=== PATIENT | female | born 1950 | race Caucasian/White ===

== ENCOUNTER → 2018-03-11 | Outpatient (CLI) | payer MEDICARE ==
[~2018-03-11] VITALS: Ht 167.6 cm; Wt 69.1 kg
[~2018-03-11] MED LIST: ATOR40TA78 PO; CARV-39 PO; ESTR0.5T PO; LEVO25TA4 PO; LISI5TAB7 PO; SPIR25TA5 PO
[2018-03-11 16:06] LABS: ALANINE AMINOTRANSFERASE 36 U/L (12-78); ALBUMIN 3.8 g/dL (3.4-5.0); ANION GAP 6 mmol/L (5-15); CALCIUM 9.3 mg/dL (8.5-10.1); CHLORIDE 104 mmol/L (98-107); CREATININE 1.01 mg/dL (0.55-1.02)
[2018-03-11 16:07] LABS: BASOPHILS # (AUTO) 0.01 x10^3/uL (0-0.1); BASOPHILS % (AUTO) 0 % (0-1); EOSINOPHILS # (AUTO) 0.15 x10^3/uL (0-0.4); EOSINOPHILS % (AUTO) 2 % (1-7); LYMPHOCYTES # (AUTO) 1.64 x10^3/uL (1-3.4); LYMPHOCYTES % (AUTO) 23 % (22-44); MD NO; MEAN CORPUSCULAR HEMOGLOBIN 30.6 pg (27.0-34.8); MEAN CORPUSCULAR HGB CONC 33.7 g/dL (32.4-35.8); MEAN CORPUSCULAR VOLUME 90.8 fL (80-100); MEAN PLATELET VOLUME 8.6 fL (7.4-10.4); MONOCYTES # (AUTO) 0.49 x10^3/uL (0.2-0.8); MONOCYTES % (AUTO) 7 % (2-9); NEUTROPHILS # (AUTO) 4.85 x10^3/uL (1.8-6.8); NEUTROPHILS % (AUTO) 68 % (42-75); PLATELET COUNT 219 x10^3/uL (130-400); RED BLOOD COUNT 4.59 x10^6/uL (3.82-5.3); RED CELL DISTRIBUTION WIDTH 12.9 % (9.6-15.2)
[2018-03-11 16:08] LABS: ALKALINE PHOSPHATASE 83 U/L (45-117); BILIRUBIN,TOTAL 0.5 mg/dL (0.2-1.0); TOTAL PROTEIN 7.5 g/dL (6.4-8.2)
[2018-03-11 16:20] LABS: BILIRUBIN, DIRECT 0.1 mg/dL (0.1-0.2)
[2018-03-11 16:22] LABS: BILIRUBIN,INDIRECT 0.4 mg/dL (0.0-2.0); BILIRUBIN,TOTAL 0.5 mg/dL (0.2-1.0)
[2018-03-11 17:10] LABS: INTERNATIONAL NORMALIZED RATIO 0.97 (0.93-1.1)
== END | disposition home or self-care (01) ==
LOC: STAR 14:36
PROVIDERS: ATTEND Internal Medicine Cardiovascular Disease
DX: Z01.810 Encounter for preprocedural cardiovascular examination (principal); Z88.6 Allergy status to analgesic agent
CPT/HCPCS: 36415; 71046; 80053; 82247; 82248; 85025; 85610; 85730

== ENCOUNTER → 2018-05-03 | Outpatient (CLI) | payer MEDICARE ==
[~2018-05-03] MED LIST changes: +APIX5TAB PO; +ASPI-496 PO; +B12 PO; +CARV12.52 PO; +CARV12.543 PO; +CHOL10003 PO; +CYAN1TAB29 PO; +DABI150C PO; +DIPH25CA61 PO; +LISI-167 PO; +LORA-702 PO; +MAGN125C PO; +MAGN400T36 PO; +MULT-6 PO; +MULT-658 PO; +OMEG1CAP6 PO; +OMNIPAQUE 350 MG/ML, 150 ML BOTTLE ONE; +QUINOL PO; +SOTA80TA PO; +SOTA80TA18 PO; +Tumeric PO
== END | disposition home or self-care (01) ==
LOC: CFH 10:32
PROVIDERS: ATTEND Internal Medicine Cardiovascular Disease
DX: I48.91 Unspecified atrial fibrillation (principal)
CPT/HCPCS: 71046; 75572; Q9967

== ENCOUNTER 2018-05-04 07:51 | Observation (INO) | payer MEDICARE ==
[2018-05-03 12:36] VITALS: BP 157/90
[~2018-05-04] VITALS: Ht 167.6 cm; Wt 82.9 kg
[~2018-05-04 07:51] MED LIST changes: -OMNIPAQUE 350 MG/ML, 150 ML BOTTLE ONE
[2018-05-04] MEDS ORDERED: SODIUM CHLORIDE 0.9% 1,000 ML IV SCH (08:04)
[2018-05-04] MEDS ORDERED: ESTR0.5T PO (08:11)
[2018-05-04] MEDS ORDERED: SODIUM CHLORIDE 0.9% 1,000 ML IV ONE (09:00)
[2018-05-04] MEDS ORDERED: PROTAMINE SULFATE 10 MG/ML, 5ML ONE (10:30)
[2018-05-04] MEDS ORDERED: MIDAZOLAM 1 MG/ML, 2ML ONE (10:34)
[2018-05-04] MEDS ORDERED: FENTANYL PF 250 MCG/5ML ONE (10:34)
[2018-05-04] MEDS ORDERED: HEPARIN 1,000 UNITS/ML, 10ML ONE ×2 (10:37→12:04)
[2018-05-04] MEDS ORDERED: DEXAMETHASONE 4 MG/ML, 1ML ONE (10:37)
[2018-05-04] MEDS ORDERED: ONDANSETRON 2MG/ML, 2ML ONE (10:37)
[2018-05-04] MEDS ORDERED: PROPOFOL 10 MG/ML, 20ML ONE (10:52)
[2018-05-04] MEDS ORDERED: SUCCINYLCHOLINE 20 MG/ML, 10ML ONE (10:52)
[2018-05-04] MEDS ORDERED: ROCURONIUM 10 MG/ML,10ML ONE (10:52)
[2018-05-04] MEDS ORDERED: EPHEDRINE 50 MG/ML, 1ML ONE (11:17)
[2018-05-04] MEDS ORDERED: VASOPRESSIN 20 UNIT/ML, 1ML ONE (11:44)
[2018-05-04] MEDS ORDERED: PHENYLEPHRINE 10 MG/ML ONE (12:01)
[2018-05-04] MEDS ORDERED: ISOPROTERENOL 0.2MG/ML, 5ML ONE (12:49)
[2018-05-04] MEDS ORDERED: ZOLPIDEM 5MG TABLET PO PRN (14:00)
[2018-05-04] MEDS ORDERED: ONDANSETRON 2MG/ML, 2ML IV PRN (14:30)
[2018-05-04] MEDS ORDERED: hydrALAzine 20 MG/ML, 1ML IV PRN (14:30)
[2018-05-04] MEDS ORDERED: OXYcodone 5 MG/5 ML ORAL.SOL UDC PO PRN (14:30)
[2018-05-04] MEDS ORDERED: HYDROmorphone 1 MG/ML, 1ML IV PRN (14:30)
[2018-05-04] MEDS ORDERED: PROMETHAZINE 12.5 MG SUPP PR PRN (14:30)
[2018-05-04] MEDS ORDERED: ALBUTEROL SULFATE 2.5 MG/3 ML NPPB PRN (14:30)
[2018-05-04] MEDS ORDERED: LORazepam 2 MG/ML, 1ML IVPush PRN (14:30)
[2018-05-04] MEDS ORDERED: MORPHINE SULFATE 4 MG/ML, 1ML IVPush PRN (14:30)
[2018-05-04] MEDS ORDERED: PROMETHAZINE 25 MG/ML, 1ML IV PRN (14:30)
[2018-05-04] MEDS ORDERED: EPHEDRINE 50 MG/ML, 1ML IVPush PRN (14:30)
[2018-05-04] MEDS ORDERED: ACETAMINOPHEN 325 MG TABLET PO PRN (14:30)
[2018-05-04] MEDS ORDERED: HALOPERIDOL 5 MG/ML IV PRN (14:30)
[2018-05-04] MEDS ORDERED: ONDANSETRON ODT 8 MG PO PRN (14:30)
[2018-05-04] MEDS ORDERED: MEPERIDINE/PF 25MG/0.5ML IVPush PRN (14:30)
[2018-05-04] MEDS ORDERED: MIDAZOLAM 1 MG/ML, 2ML IV PRN (14:30)
[2018-05-04] MEDS ORDERED: LABETALOL 5MG/ML, 20ML IV PRN (14:30)
[2018-05-04] MEDS ORDERED: APIXABAN 5 MG TABLET ONE (15:01)
[2018-05-04] MEDS: APIXABAN 5 MG TABLET PO SCH (15:03)
[2018-05-04] MEDS: ACETAMINOPHEN 325 MG TABLET PO PRN ×2 (17:40→23:20)
[2018-05-04 20:00] VITALS: BP 130/83
[2018-05-04] MEDS: SOTALOL 80MG TABLET PO SCH (20:11)
[2018-05-04] MEDS: LORATADINE/PSE 5/120MG TAB.ER.12H PO SCH (20:12)
[2018-05-04] MEDS ORDERED: DIPHENHYDRAMINE 25 MG CAPSULE PO SCH (21:00)
[2018-05-04] MEDS ORDERED: ATORVASTATIN 40 MG TABLET PO SCH (21:00)
[2018-05-05 02:09] VITALS: BP 131/81
[2018-05-05] MEDS ORDERED: LEVOTHYROXINE 25 MCG TABLET PO SCH (06:00)
[2018-05-05] MEDS: SOTALOL 80MG TABLET PO SCH (08:56)
[2018-05-05] MEDS: APIXABAN 5 MG TABLET PO SCH (08:56)
[2018-05-05] MEDS ORDERED: SPIRONOLACTONE 25 MG TABLET PO SCH (09:00)
[2018-05-05] MEDS: ACETAMINOPHEN 325 MG TABLET PO PRN (09:00)
[2018-05-05] MEDS ORDERED: ESTRADIOL 0.5 MG TABLET PO SCH (09:00)
[2018-05-05] MEDS: LORATADINE/PSE 5/120MG TAB.ER.12H PO SCH (09:00)
[2018-05-05] MEDS ORDERED: TEMPLATE NON-FORMULARY MED. (Cyanocobalamin/Folic Acid** (Vitamin B12-Folic Acid Tablet**) PO SCH (09:00)
[2018-05-05] MEDS ORDERED: MAGNESIUM CHLORIDE 64 MG TABLET.DR PO SCH (09:00)
[2018-05-05] MEDS ORDERED: CHOLECALCIFEROL 1,000 UNIT TABLET PO SCH (09:00)
[2018-05-05] MEDS ORDERED: MULTIVITAMIN 1 TABLET PO SCH (09:00)
[2018-05-05] MEDS ORDERED: LISINOPRIL 10 MG TABLET PO SCH (09:00)
[2018-05-05 09:58] VITALS: BP 118/74
== END 2018-05-05 13:31 | disposition home or self-care (01) ==
LOC: CACL 07:51 → ORIP 13:36 → 5SO 17:34 → DCLOUNGE 05-05 13:23
PROVIDERS: ADMIT Internal Medicine Cardiovascular Disease; ATTEND Internal Medicine Cardiovascular Disease
DX: I48.91 Unspecified atrial fibrillation (principal); I47.1 Supraventricular tachycardia
CPT/HCPCS: 85347; 93308; 93312; 93321; 93325; 93613; 93655; 93656; 93662; C1730; C1732; C1759; C1766; C1893; C1894; G0378; J0330; J1100; J1644; J2250; J2370; J2405; J2704; J2720; J3010; Q0163

== ENCOUNTER → 2020-08-29 | Outpatient (CLI) | payer MEDICARE | END | disposition home or self-care (01) | LOC: CFH 14:50 | PROVIDERS: ATTEND Internal Medicine Cardiovascular Disease | DX: I08.3 Combined rheumatic disorders of mitral, aortic and tricuspid valves (principal); I48.91 Unspecified atrial fibrillation; I10 Essential (primary) hypertension; E78.5 Hyperlipidemia, unspecified; Z79.01 Long term (current) use of anticoagulants | CPT/HCPCS: 93306 ==